=== PATIENT | male | born 1995 | race Caucasian/White ===

== ENCOUNTER 2018-04-17 18:35 | Emergency (ER) | payer SELFPAY ==
[2018-04-17 18:49] VITALS: BP 142/87
--- NOTE | 2018-04-17 19:23 | UC ---
Abdominal Pain Male HPI - HPI Summary HPI Summary: 22-year-old male comes in with a chief complaint of intermittent numbness of the left upper and mid abdomen for 3 months. In the last couple of days had pain in that same area. The pain is intermittent and it's worse with certain movements better with rest. He does have a history of chronic back pain. He does get short of breath with activity but he denies any chest pain today. No fevers or chills. No cough or chest congestion. The numbness and show a at any time and gradually goes away on its own. Last 2 days with certain movements he's actually getting pain in the areas. Eating and drinking well normal bowels no blood in stool no problems with urination. He does have a history of kidney stones denies any concern of kidney stones with the symptoms. Denies any testicular pain. No known trauma. He does drive a truck. - History of Current Complaint Chief Complaint: UCAbdominalPain Stated Complaint: ABDOMINAL PAIN Time Seen by Provider: 04/17/18 18:46 Pain Intensity: 6 - Allergies/Home Medications Allergies/Adverse Reactions: Allergies Allergy/AdvReac Type Severity Reaction Status Date / Time No Known Allergies Allergy Unverified 04/17/18 18:49 PMH/Surg Hx/FS Hx/Imm Hx Previously Healthy: Yes - CHRONIC INTERMITTENT LOW BACK PAIN - Surgical History Surgical History: Yes Surgery Procedure, Year, and Place: TUBES TO EARS - Family History Known Family History: Positive: Non-Contributory - Social History Alcohol Use: Occasionally Substance Use Type: None Smoking Status (MU): Never Smoked Tobacco Review of Systems All Other Systems Reviewed And Are Negative: Yes Constitutional: Positive: Negative Skin: Positive: Negative. Negative: Rash Eyes: Positive: Negative ENT: Positive: Negative Respiratory: Positive: Negative. Negative: Shortness Of Breath Cardiovascular: Positive: Negative Gastrointestinal: Positive: Abdominal Pain Genitourinary: Positive: Negative. Negative: Dysuria, Hematuria, Frequency, Urgency Motor: Positive: Negative Neurovascular: Positive: Negative Musculoskeletal: Positive: Negative Neurological: Positive: Paresthesia Psychological: Positive: Negative Is Patient Immunocompromised?: No Physical Exam Triage Information Reviewed: Yes Appearance: Well-Appearing, No Pain Distress, Well-Nourished Vital Signs: Initial Vital Signs Temp 99.6 F 04/17/18 18:41 Pulse 92 04/17/18 18:41 Resp 16 04/17/18 18:41 BP 142/87 04/17/18 18:41 Pulse Ox 96 04/17/18 18:41 Vital Signs Reviewed: Yes Eye Exam: Normal Eyes: Positive: Conjunctiva Clear Neck exam: Normal Neck: Positive: Supple Respiratory: Positive: Lungs clear, Normal breath sounds, No respiratory distress, Other: - RIBS NON TENDER Cardiovascular: Positive: RRR Abdomen Description: Positive: Soft, Other: - MILD TENDERNESS LEFT ABDOMEN. Negative: CVA Tenderness (R), CVA Tenderness (L), Distended, Guarding Bowel Sounds: Positive: Present Musculoskeletal Exam: Normal Musculoskeletal: Positive: Strength Intact, ROM Intact Neurological Exam: Normal Neurological: Positive: Alert, Muscle Tone Normal Psychological Exam: Normal Psychological: Positive: Normal Response To Family, Age Appropriate Behavior Skin Exam: Normal Abd Pain Male Course/Dx - Course Course Of Treatment: Patient is mildly tender to palpation Left abdomen. He is not tender on his ribs. His low back is tender to palpation as is lower thoracic back. No rash. Patient's been having intermittent paresthesias in this area for months now with intermittent pain in the same area with certain movements. Clinically the cause of the pain is nerve impingement most likely in the lower thoracic and lumbar back. We discussed all of this we discussed if his condition gets worse or if he develops abdominal pain fevers or any other concerns he is to get reevaluated. Overall the plan is anti- inflammatories trying to avoid repetitive motions that elicits the numbness or pain. Also increase stretching and strengthening of the back. - Differential Dx/Clinical Impression Provider Diagnosis: Paresthesia, Left lateral abdominal pain, Low back pain Discharge - Sign-Out/Discharge Documenting (check all that apply): Patient Departure All imaging exams completed and their final reports reviewed: No Studies - Discharge Plan Condition: Stable Disposition: HOME Patient Education Materials: Paresthesia (ED), Abdominal Pain (ED), Back Pain ( ED), Lower Back Exercises (ED) Referrals: [facility] [Outside] Additional Instructions: FOLLOW UP WITH YOUR DOCTOR IF NOT COMPLETELY IMPROVED. GET RECHECKED FOR ANY WORSENING OF YOUR CONDITION; PAIN, WEAKNESS, FEVER, SHORTNESS OF BREATH OR QUESTIONS OR CONCERNS. - Billing Disposition and Condition Condition: STABLE Disposition: Home
== END 2018-04-17 19:37 | disposition home or self-care (01) ==
LOC: UCEAST 18:35
DX: R20.2 Paresthesia of skin (principal); R10.32 Left lower quadrant pain; M54.5 Low back pain
CPT/HCPCS: 81003; 99201; G0463